=== PATIENT | female | born 1980 | race Caucasian/White ===

== ENCOUNTER 2019-12-28 12:22 | Day surgery (SDC) | payer OTHER ==
[~2019-12-28] VITALS: Ht 165.1 cm; Wt 100.0 kg
[~2019-12-28 12:22] MED LIST: EPHEDRINE 50 MG/ML, 1ML IVPush PRN; FENTANYL PF 100 MCG/2ML IV PRN; HYDROmorphone 2 MG/ML, 1ML IVPush PRN; LABETALOL 5MG/ML, 20ML IV PRN; MEPERIDINE/PF 25MG/ML,1ML IVPush PRN; ONDANSETRON 2MG/ML, 2ML IV PRN; OXYC-302 PO; OXYcodone 5 MG/5 ML ORAL.SOL UDC PO PRN; PROMETHAZINE 25 MG/ML, 1ML IV PRN; hydrALAzine 20 MG/ML, 1ML IV PRN
[2019-12-28] MEDS ORDERED: LACTATED RINGERS 1,000 ML IV SCH (12:47)
[2019-12-28 12:54] VITALS: BP 148/101
[2019-12-28] MEDS ORDERED: CHLORHEXIDINE 15 ML UDC MM ONE (13:00)
[2019-12-28] MEDS ORDERED: ACETAMINOPHEN 500 MG TABLET PO ONE (13:00)
[2019-12-28 13:05] LABS: MICROSCOPIC NOT IND
[2019-12-28] MEDS ORDERED: FENTANYL PF 100 MCG/2ML ONE ×2 (14:40→17:42)
[2019-12-28] MEDS ORDERED: MIDAZOLAM 1 MG/ML, 2ML ONE (14:40)
[2019-12-28] MEDS ORDERED: DEXAMETHASONE 4 MG/ML, 1ML ONE ×2 (14:41)
[2019-12-28] MEDS ORDERED: ONDANSETRON 2MG/ML, 2ML ONE ×2 (14:41→17:04)
[2019-12-28] MEDS ORDERED: PROPOFOL 10 MG/ML, 20ML ONE (14:41)
[2019-12-28] MEDS ORDERED: LIDOCAINE-MPF 2% ,5ML ONE (14:41)
[2019-12-28] MEDS ORDERED: CEFAZOLIN 1,000 MG ONE ×2 (15:23)
[2019-12-28] MEDS ORDERED: ACETAMINOPHEN 325 MG TABLET PO PRN (16:00)
[2019-12-28] MEDS ORDERED: KETOROLAC 30 MG/1 ML IV PRN (16:00)
[2019-12-28] MEDS ORDERED: OXYcodone 5 MG/5 ML ORAL.SOL UDC PO PRN (16:00)
[2019-12-28] MEDS ORDERED: PROMETHAZINE 12.5 MG SUPP PR PRN (16:00)
[2019-12-28] MEDS ORDERED: MEPERIDINE/PF 25MG/ML,1ML IVPush PRN (16:00)
[2019-12-28] MEDS ORDERED: HYDROmorphone 2 MG/ML, 1ML IVPush PRN (16:00)
[2019-12-28] MEDS ORDERED: FENTANYL PF 100 MCG/2ML IV PRN (16:00)
[2019-12-28] MEDS ORDERED: OMNIPAQUE 350 MG/ML, 50 ML BOTTLE IV ONE (16:01)
[2019-12-28] MEDS ORDERED: PHENAZOPYRIDINE 200 MG TABLET ONE (17:04)
[2019-12-28] MEDS ORDERED: PROMETHAZINE 25 MG/ML, 1ML ONE (17:21)
[2019-12-28] MEDS ORDERED: PHENAZOPYRIDINE 200 MG TABLET PO ONE (17:30)
[2019-12-28] MEDS ORDERED: HYDROmorphone 1 MG/ML, 1ML INJ ONE (17:32)
[2019-12-28 19:00] VITALS: BP 140/94
== END 2019-12-28 20:58 | disposition home or self-care (01) ==
LOC: OR 12:22 → 4NE 18:34 → OR 20:58
PROVIDERS: ATTEND Urology
DX: N13.2 Hydronephrosis with renal and ureteral calculous obstruction (principal); E66.9 Obesity, unspecified; Z79.891 Long term (current) use of opiate analgesic; Z79.899 Other long term (current) drug therapy; Z88.2 Allergy status to sulfonamides; Z88.5 Allergy status to narcotic agent; Z82.49 Family history of ischemic heart disease and other diseases of the circulatory system; Z84.1 Family history of disorders of kidney and ureter
CPT/HCPCS: 52353; 74420; 81003; 81025; C1769; J0690; J1100; J1170; J2250; J2405; J2704; J3010; J7120; Q9967; G0378